=== PATIENT | female | born 1970 | race Caucasian/White ===

== ENCOUNTER → 2022-07-24 | Outpatient (CLI) | payer OTHER, SELFPAY | END | disposition home or self-care (01) | PROVIDERS: PCP Internal Medicine; Referring Provider Internal Medicine; Visit Provider Internal Medicine | DX: G47.30 Sleep apnea, unspecified (principal) | CPT/HCPCS: 95810 ==

== ENCOUNTER → 2022-09-05 | Outpatient (CLI) | payer OTHER, SELFPAY | END | disposition home or self-care (01) | LOC: SL 07:21 | PROVIDERS: PCP Internal Medicine; Visit Provider Internal Medicine | DX: G47.33 Obstructive sleep apnea (adult) (pediatric) (principal) ==

== ENCOUNTER 2022-10-06 13:30 | Emergency (ER) | payer OTHER, SELFPAY ==
[2022-10-06 13:30] VITALS: BP 149/89; PULSE 80; RESP 18; TEMP 36.1; O2SAT 100; BMI 41.5
--- NOTE | 2022-10-06 14:11 | CT_ITS ---
STUDY: CT BRAIN WITHOUT CONTRAST REASON FOR EXAM: Female, 52 years old. Head trauma RADIATION DOSAGE (If Supplied By Facility): CTDIvol = ( 44.99 ) mGy, DLP = ( 796.11 ) mGycm TECHNIQUE: Transaxial CT imaging of the brain was performed without administration of intravenous contrast material. Individualized dose optimization techniques were used for this CT. COMPARISON: None. FINDINGS: Normal soft tissue structures. Normal calvarium. No visualized skull fractures or hemorrhagic contusions of the brain parenchyma or subdural hematomas. 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 Normal size ventricles and extra-axial spaces for the patient''s age. Normal white matter tracts of the cerebral hemispheres. Normal basal ganglia and thalami. Normal brainstem. Normal cerebellum. There is no intracranial hemorrhage. There are no findings of an acute ischemic infarction. Normal visualized paranasal sinuses. CT/Brain/Head without Contrast IMPRESSION: Normal unenhanced CT scan of the brain. Electronically Signed: Jesse Wilks MD at 14:58 EST ,
--- NOTE | 2022-10-06 14:12 | EX.ED.GENINJ ---
HPI History of Present Illness Chief Complaint: Head Injury Informant: patient, spouse/S.O. and family Narrative Narrative: Patient presents after 2 head injuries in the last approximately 3 weeks. Just before she hit her head on the tovar of an SUV as she turned around and accidentally walked into it. No loss of consciousness. No laceration. But she was having headaches and just did not feel well for at least a couple weeks. She does not remember Day. She was off of work then so she just stayed at home and rested. Things were getting better. Last evening she then tripped and fell on the bleachers at a basketball game. She hit her head not exactly sure where. She is having more headaches again. Most of them are on the left side of her head. She had an episode of dry heaves this morning and mild nausea but has had no vomiting. She has had no numbness tingling or weakness. She does feel that a couple times she is walked toward the left but she did not fall and was able to catch her self. She also feels as though she has trouble focusing and remembering things as quickly as she normally was. She is not having pain in extremities or neck. She is having no peripheral numbness tingling weakness. Patient has not been ill recently. She has had no nasal congestion or drainage. No sore throat. No coughing or trouble breathing. No chest pain. She had the nausea and dry heaves but no abdominal pain or diarrhea. She has no diffuse myalgias. She has no urinary symptoms. She has no focal neurodeficit but has had 2 episodes of that balance issue where she is walked to the left. She feels her memory is not as quick as normal. No bleeding. No polyuria polydipsia or history of diabetes. Review of system systems is negative other than in history of present illness. Past medical history: Patient has had migraines in the past but its been years if not decades since she has had these. Only medications are Zanaflex and vitamins Allergy penicillin No recent surgeries Lives with family, non-smoker. PFSH PFSH Home Medications ondansetron 4 mg disintegrating tablet 4 mg PO Q8H PRN nausea and vomiting #10 tabs 10/06/22 [Rx Last Taken Unknown] Allergy/AdvReac Type Severity Reaction Status Date / Time Penicillins Allergy Rash Verified 10/06/22 13:33 Social History Smoking Status: Never smoker EXAM Physical Exam Narrative Exam Narrative: Patient is awake and alert. She is in a darkened room as she does have some mild photophobia. She is not confused. She carries on normal conversation. She takes just a moment to remember the name of the med that she is on but this is common. Head does not show any sign of external trauma that I can see. She has some soreness along the right occipital area but no notable swelling or laceration seen there. Pupils have good range of motion. Pupils are both about 2-1/2 mm and reactive. There is no asymmetry. She states she had seen asymmetry back after [place] but I do not see that now. There is some mild photophobia. Neck is not tender. No pain with motion. Her lungs are clear bilaterally. Heart is regular without murmur gallop or rub. Peripheral pulses are equal. Abdomen is soft and nontender. Pelvis is stable. There is no thoracic or lumbar tenderness. There is no CVA tenderness. No tenderness deformity or trauma to her extremities. Patient is awake alert no acute distress. She is oriented x3. No indication of thought process abnormality. No discoordination. No pallor or skin rashes. Const Vital Signs: 10/06/22 13:30 10/06/22 14:17 Temperature 97 F L Temperature Source Temporal Pulse Rate 80 Respiratory Rate 18 Respiratory Effort Normal Non-Labored Blood Pressure 149/89 H Blood Pressure Mean 109 Pulse Ox 100 97 Oxygen Delivery Method Room Air Room Air MDM MDM MDM Narrative Medical decision making narrative: My independent interpretation of the patient's noncontrast CT scan of the brain shows no sign of fracture acute bleeding mass or shift. I also reviewed the radiology is reviewed that shows a normal unenhanced CT of the brain. Patient was given Zofran that helped her nausea quite a bit. It is completely resolved at this time. She still has a headache but feels that the headaches even better after the nausea is improved. She would like some Tylenol which we will get for her. We discussed with her and the family that her CT is negative for any acute injury. There is no indication for transfer, trauma eval or surgical intervention for this. Although multiple falls with head injury are certainly concerning, I think she can be treated at home with [id number] meds for pain. I will write for some Zofran for her. We also discussed reasons that would bring her back. Radiography Diagnostic Testing: Clinical Impression(s) from Imaging Studies Brain CT 10/06/22 14:11 IMPRESSION: Normal unenhanced CT scan of the brain. Electronically Signed: Jesse Wilks MD at 14:58 EST Reading Location ID and State: [address] [place] [address] , Service support , Discharge Plan Triage Chief Complaint: Head Injury ED Provider: Barrington Tapia Dx/Rx/DC Orders Clinical Impression: Closed head injury with concussion, Fall from slip, trip, or stumble, Nausea Instructions: ED Concussion, ED Head Injury (Adult) Prescriptions: New ondansetron 4 mg tablet,disintegrating 4 mg PO Q8H PRN (Reason: nausea and vomiting) Qty: 10 0RF Primary Care Provider: Leonor Dixon Referrals: Leonor Dixon MD [Primary Care Provider] - 3-5 Days Disposition Disposition: Home, Self Care
[2022-10-06] MEDS: Ondansetron ODT 4 MG Tablet PO (14:16)
[2022-10-06 14:17] VITALS: O2SAT 97
[2022-10-06] MEDS: Acetaminophen 500 MG Tablet 1000 MG PO (15:27)
== END 2022-10-06 15:32 | disposition home or self-care (01) ==
PROVIDERS: Emergency Provider Emergency Medicine; PCP Internal Medicine; Visit Provider Emergency Medicine
DX: S06.0XAA Concussion with loss of consciousness status unknown, initial encounter (principal); R11.0 Nausea; W01.0XXA Fall on same level from slipping, tripping and stumbling without subsequent striking against object, initial encounter; Y92.310 Basketball court as the place of occurrence of the external cause
CPT/HCPCS: 70450; 99283